=== PATIENT | female | born 2000 | race Asian ===

== ENCOUNTER 2024-01-30 12:08 | Emergency (ER) | payer BC, OTHER ==
[2024-01-30 12:33] VITALS: RESP 16
[2024-01-30 14:42] VITALS: BP 107/70; PULSE 98; TEMP 98.7
== END 2024-01-30 14:43 | disposition home or self-care (01) ==
LOC: JER 12:08
DX: R55 Syncope and collapse (principal)
CPT/HCPCS: 84703; 93005; 93010; 99284-25